=== PATIENT | male | born 1965 | race Caucasian/White ===

== ENCOUNTER 2021-11-22 09:50 | Emergency (ER) | payer BC ==
[2021-11-22] MEDS ORDERED: Morphine 2 MG/ML SYRINGE IM ONE (09:59)
[2021-11-22 10:16] VITALS: BP 158/76; PULSE 73
== END 2021-11-22 10:36 | disposition home or self-care (01) ==
LOC: VM.ED 09:50
DX: S43.004A Unspecified dislocation of right shoulder joint, initial encounter (principal); Z79.899 Other long term (current) drug therapy; W18.40XA Slipping, tripping and stumbling without falling, unspecified, initial encounter; Y99.0 Civilian activity done for income or pay
CPT/HCPCS: 73030-RT; 96372; 99283; J2270

== ENCOUNTER 2024-12-05 10:38 | Emergency (ER) | payer MEDICAID ==
[2024-12-05] MEDS: Nitroglycerin 0.4 MG Tab.SL SL ONE ×3 (11:06→18:13)
[2024-12-05 11:16] LABS: BASOPHILS ABSOLUTE AUTO 0.0 x10^3/uL (0.0-0.2); BASOPHILS PERCENT AUTO 0.4 % (0.2-1.2); EOSINOPHILS ABSOLUTE AUTO 0.0 x10^3/uL (0.0-0.5); EOSINOPHILS PERCENT AUTO 0.5 % (0.0-4.0); IMMATURE GRAN ABSOLUTE AUTO 0.02 x10^3/uL (0.00-0.07); IMMATURE GRAN PERCENT AUTO 0.20 % (0.00-0.43); LYMPHOCYTES ABSOLUTE AUTO 1.5 x10^3/uL (1.0-4.8); LYMPHOCYTES PERCENT AUTO 17.9 % (25.0-50.0); MONOCYTES ABSOLUTE AUTO 0.7 x10^3/uL (0.0-0.8); MONOCYTES PERCENT AUTO 8.2 % (2.0-11.0); NEUTROPHILS ABSOLUTE AUTO 6.1 x10^3/uL (1.8-7.7); NEUTROPHILS PERCENT AUTO 72.8 % (50.0-80.0); PLATELET COUNT,PLT 328 x10^3/uL (130-400); RED BLOOD CELL COUNT 4.49 x10^6/uL (4.5-6.0); WHITE BLOOD CELL COUNT,WBC 8.4 x10^3/uL (4.0-10.0)
[2024-12-05 11:28] LABS: A/G RATIO 1.03; ALANINE AMINOTRANSFERASE,ALT 61 U/L (16-63); ASPARTATE AMNIOTRANSFERASE,AST 39 U/L (15-37); BILIRUBIN TOTAL 0.3 mg/dL (0.2-1.0); BLOOD UREA NITROGEN,BUN 15 mg/dL (7-18); CARBON DIOXIDE,CO2 29 mmol/L (21-32); CHLORIDE,CL 98 mmol/L (98-107); CREATININE 0.9 mg/dL (0.70-1.30); EST CRCL DRUG DOSING (CG) 90.12 mL/min; ESTIMATED GFR 98 mL/min (>=60); ETHANOL BLOOD MEDICAL < 3 mg/dL (0-3); GLUCOSE RANDOM 112 mg/dL (70-99); POTASSIUM,K 4.5 mmol/L (3.5-5.1); PRO B-TYPE NATRIUR PEPT,BNPPRO 32 pg/mL (<=125); PROTEIN TOTAL,TP 8.1 g/dL (6.4-8.2); SODIUM,NA 136 mmol/L (136-145)
[2024-12-05] MEDS: Sodium Chloride 0.9% 10 ML Syringe FLUSH PRN (12:19)
[2024-12-05 12:58] VITALS: PULSE 71
[2024-12-05 18:14] VITALS: BP 122/64
[2024-12-05] MEDS: Nitroglycerin 0.4 MG Tab.SL SL PRN (18:14)
== END 2024-12-05 18:55 | disposition short-term general hospital (02) ==
LOC: VM.ED 10:38
DX: I20.0 Unstable angina (principal); E78.00 Pure hypercholesterolemia, unspecified; I10 Essential (primary) hypertension; F17.200 Nicotine dependence, unspecified, uncomplicated; Z91.018 Allergy to other foods; Z88.8 Allergy status to other drugs, medicaments and biological substances; Z79.899 Other long term (current) drug therapy
CPT/HCPCS: 71045; 80053; 80307; 83735; 83880; 84484; 85025; 93010; 99284; 99285; A9270; J7030; J2305